=== PATIENT | male | born 1950 | race Caucasian/White ===

== ENCOUNTER → 2017-01-25 | Outpatient (CLI) | payer MEDICARE, BC ==
--- NOTE | 2017-01-25 09:46 | PCVCIMAG ---
APPROVED REPORT Study performed: 01/25/2017 08:32:55 EXAM: Comprehensive 2D, Doppler, and color-flow Echocardiogram Patient Location: Echo lab Status: routine BSA: 2.07 HR: 58 bpmBP: 134/84 mmHg Rhythm: RBBB, Bradycardia Other Information Study Quality: Good Risk Factors: Cardiac Risk Factors: HTN, Hyperlipidemia Indications Parox A-Fib, RBBB 2D Dimensions LVEF(%): 56.28 (>50%) IVSd: 10.82 (7-11mm) LVDd: 50.13 mm PWd: 10.10 (7-11mm) LVDs: 35.32 (25-40mm) Left Atrium: 50.17 (27-40mm) Aortic Root: 30.92 mm LV Single Plane 4CH: 58.35 % LV Single Plane 2CH: 65.15 %Serna's LVEF: 61.75 % Biplane EF: 63.3 % Volumes Left Atrial Volume (Systole) Single Plane 4CH: 86.03 mLSingle Plane 2CH: 87.47 mL LA ESV Index: 45.00 mL/m2 Aortic Valve AoV Peak Bhupendra.: 1.45 m/s AO Peak Gr.: 8.43 mmHgLVOT Max P.64 mmHg LVOT Max V: 1.08 m/s Mitral Valve E/A Ratio: 1.4 MV Decel. Time: 207.92 ms MV E Max Bhupendra.: 0.57 m/s MV A Bhupendra.: 0.41 m/s IVRT: 121.11 ms Pulmonary Valve PV Peak Bhupendra.: 1.36 m/sPV Peak Gr.: 7.43 mmHg Pulmonary Vein P Vein S: 0.32 m/sP Vein A: 0.38 m/s P Vein D: 0.38 m/sP Vein A Dur.: 148.8 msec P Vein S/D Ratio: 0.84 Tricuspid Valve TR Peak Bhupendra.: 2.62 m/s TR Peak Gr.: 27.40 mmHg Left Ventricle The left ventricle is normal size. There is normal LV segmental wall motion. There is normal left ventricular wall thickness. Left ventricular systolic function is normal. The left ventricular ejection fraction is within the normal range. LVEF is 60-65%. Grade II - pseudonormal filling dynamics. Right Ventricle The right ventricle is normal size. The right ventricular systolic function is normal. Atria Left atrium is moderately dilated. Right atrium is mildly dilated. Aortic Valve The aortic valve is trileaftlet, mildly sclerotic No aortic regurgitation is present. There is no aortic valvular stenosis. Mitral Valve The mitral valve is normal in structure. Mild mitral regurgitation. No evidence of mitral valve stenosis. Tricuspid Valve The tricuspid valve is normal in structure. Mild tricuspid regurgitation with PAP of 35 mmHg. Pulmonic Valve The pulmonary valve is normal in structure. Trace pulmonic regurgitation. Great Vessels The aortic root is normal in size. IVC is normal in size and collapses with >50% inspiration Pericardium There is no pericardial effusion. <Conclusion> Left ventricular systolic function is normal. LVEF is 60-65%. Normal LV segmental wall motion. Grade II - pseudonormal filling dynamics. Both atria are dilated. The aortic valve is trileaftlet, mildly sclerotic. No aortic valvular stenosis; trace insufficiency The mitral valve is normal in structure. Mild mitral regurgitation. Pulmonary artery pressure estimated at 35mmHg There is no pericardial effusion.
--- NOTE | 2017-01-25 09:50 | PCVCIMAG ---
APPROVED REPORT Patient Location: Echo lab Room #: Stress Nurse: Dana Perdomo RN TREADMILL STRESS TEST Indications- Paroxysmal A-Fib, HTN, HLP The patient exercised according to the [facility] protocol for 13:06 mins; achieving a work level of 17.2 METS. The resting heart rate of 58 bpm marv to a maximal heart rate of 136 bpm. This value represents 88% of the maximal, age-predicted heart rate. The resting blood pressure of 134/84_ mmHg, marv to a maximum of 200/80 mmHg. The exercise test was stopped due to fatigue and dyspnea. Resting EKG: Sinus bradycardia with right bundle branch block Stress EKG: No ST segment shifts diagnostic of myocardial ischemia. Rare ventricular ectopy. Conclusion 1. Maximal treadmill exercise study negative for exercise-induced myocardial ischemia 2. No subjective signs of ischemia such as chest pain or anginal-like symptoms. 3. The study was associated with good exercise capacity (17.2 METS)
== END | disposition home or self-care (01) ==
LOC: PCVCIMAG 08:32
PROVIDERS: ATTEND Internal Medicine
DX: I08.1 Rheumatic disorders of both mitral and tricuspid valves (principal); E78.2 Mixed hyperlipidemia; I48.0 Paroxysmal atrial fibrillation; I10 Essential (primary) hypertension; I45.10 Unspecified right bundle-branch block; I44.0 Atrioventricular block, first degree; Z98.52 Vasectomy status; Z79.82 Long term (current) use of aspirin; Z79.899 Other long term (current) drug therapy
CPT/HCPCS: 93017; 93306; G0463

== ENCOUNTER → 2018-03-22 | Outpatient (CLI) | payer MEDICARE, BC | END | disposition home or self-care (01) | LOC: PCVCCLINIC 13:42 | PROVIDERS: ATTEND Internal Medicine | DX: I48.0 Paroxysmal atrial fibrillation (principal); I10 Essential (primary) hypertension; I45.10 Unspecified right bundle-branch block; E78.2 Mixed hyperlipidemia; E78.00 Pure hypercholesterolemia, unspecified; Z79.82 Long term (current) use of aspirin | CPT/HCPCS: 93005; G0463 ==

== ENCOUNTER → 2019-03-28 | Outpatient (CLI) | payer MEDICARE, BC | END | disposition home or self-care (01) | LOC: PCVCCLINIC 16:17 | PROVIDERS: ATTEND Internal Medicine | DX: I48.0 Paroxysmal atrial fibrillation (principal); I10 Essential (primary) hypertension; I45.10 Unspecified right bundle-branch block; R94.31 Abnormal electrocardiogram [ECG] [EKG]; E78.2 Mixed hyperlipidemia; Z98.52 Vasectomy status; Z82.49 Family history of ischemic heart disease and other diseases of the circulatory system | CPT/HCPCS: 36415; 80061; 93005; G0463 ==